=== PATIENT | male | born 1955 | race Caucasian/White ===

== ENCOUNTER 2017-03-28 11:20 | Emergency (ER) | payer OTHER ==
--- NOTE | ~2017-03-28 | CT71 ---
[facility] A Service [facility] RADIOLOGY TEXT RESULTS PATIENT: LIBAN MILLIGAN LOCATION: SED : 59 UNIT #: [id number] AGE: [address]: Otilia Bowen MD SEX: M ORDER DR: [id number] [place] [address] [id number] E MR#: [id number] Acc #: [id number] NAME: LIBAN MILLIGAN : 1955 SEX: M STUDY DATE/TIME: 03/28/2017 12:28 UNIT: SED ROOM: STUDY DESCRIPTION: CT Head Wo Contrast Attending Physician: Otilia Bowen M.D. Ordering Physician: Otilia Bowen M.D. Primary Care Physician: Carlos Enrique Charles M.D. MEDICAL IMAGING REPORT This report is preliminary unless electronic signature is present. EXAM Head CT 03/28 INDICATIONS Dizziness intermittently over the last 10 days, worse in the morning. TECHNIQUE Axial images were obtained from the base to the vertex without contrast. This CT exam was performed with one or more of the following radiation dose reduction techniques: automatic exposure control, adjustment of mA and/or kV according to patient size, and iterative reconstruction. COMPARISON STUDIES No comparison. FINDINGS Ventricular size and configuration are within normal limits. There is no acute infarct or hemorrhage. There are no masses. There is no skull fracture. There are some atherosclerotic calcifications in the carotid siphons. IMPRESSION Negative head CT. Dictated by... Reid Alamo Jr., M.D. THIS IS AN ELECTRONICALLY VERIFIED REPORT Reid Alamo Jr., M.D. at 03/30/2017 7:19 AM [facility] A Service [facility] RADIOLOGY TEXT RESULTS PATIENT: LIBAN MILLIGAN LOCATION: SED : 59 UNIT #: [id number] AGE: [address]: Otilia Bowen MD SEX: M ORDER DR: LARS/britney TD: 03/28/2017 17:44 JOB #: [id number] MEDICAL IMAGING REPORT Page 1 of 1
--- NOTE | ~2017-03-28 | EKG ---
PATIENT: LIBAN MILLIGAN UNIT #: [id number] Ventricular Rate: 86 BPM Atrial Rate: 86 BPM P-R Interval: 144 ms QRS Duration: 96 ms Q-T Interval: 368 ms QTC Calculation(Bezet): 440 ms P [place]: 57 degrees Calculated R [place]: 54 degrees Calculated T [place]: 64 degrees Diagnosis Line: Normal sinus rhythm Diagnosis Line: Possible Left atrial enlargement Diagnosis Line: Incomplete right bundle branch block Diagnosis Line: Borderline ECG Diagnosis Line: No previous ECGs available Diagnosis Line: Confirmed by EMI STILL MD ([id number]) on Diagnosis Line: 03/30/2017 4:49:07 PM INTERPRETING MD: TESSY COOK
--- NOTE | ~2017-03-28 | CR72 ---
[facility]. [facility] A Service of [facility] & [facility] RADIOLOGY TEXT RESULTS PATIENT: LIBAN MILLIGAN LOCATION: SED : 59 UNIT #: [id number] AGE: [address]: Otilia Bowen MD SEX: M ORDER DR: [id number] [place] [id number] E MR#: [id number] Acc #: [id number] NAME: LIBAN MILLIGAN : 1955 SEX: M STUDY DATE/TIME: 03/28/2017 12:35 UNIT: SED ROOM: STUDY DESCRIPTION: CR Chest Single View Portable Attending Physician: Otilia Bowen M.D. Ordering Physician: Otilia Bowen M.D. Primary Care Physician: Carlos Enrique Charles M.D. MEDICAL IMAGING REPORT This report is preliminary unless electronic signature is present. EXAM Portable chest. INDICATION Dizziness off and on for 10 days. COMPARISON No comparisons. FINDINGS There is an opacity in the medial right base which may represent atelectasis versus a small infiltrate. There are no prior studies available for comparison. Heart size is probably normal. IMPRESSION Opacity in the medial right base may be atelectasis versus small infiltrate. Follow up to clearing is recommended. No prior studies available for comparison. Dictated by... Ramez Rodriguez M.D. THIS IS AN ELECTRONICALLY VERIFIED REPORT Ramez Rodriguez M.D. at 03/29/2017 8:15 AM KRISTEL/annelise TD: 03/28/2017 17:57 JOB #: [id number] MEDICAL IMAGING REPORT Page 1 of 1
--- NOTE | ~2017-03-28 | CT16 ---
[facility] A Service of [facility] & [facility] RADIOLOGY TEXT RESULTS PATIENT: LIBAN MILLIGAN LOCATION: SED : 59 UNIT #: [id number] AGE: [address]: Otilia Bowen MD SEX: M ORDER DR: [id number] [address] [address] [id number] E MR#: [id number] Acc #: [id number] NAME: LIBAN MILLIGAN : 1955 SEX: M STUDY DATE/TIME: 03/28/2017 13:45 UNIT: SED ROOM: STUDY DESCRIPTION: CT Angio Chest for PE Attending Physician: Otilia Bowen M.D. Ordering Physician: Otilia Bowen M.D. Primary Care Physician: Carlos Enrique Charles M.D. MEDICAL IMAGING REPORT This report is preliminary unless electronic signature is present. EXAM CT angiogram of the chest INDICATION Abnormal chest radiograph performed today which showed potential opacity at the right lung base. TECHNIQUE Axial CT images were obtained from the thoracic inlet through the dome of the diaphragm following administration of intravenous contrast material. Following this, 3-D reformatted images were obtained. This CT exam was performed with one or more of the following radiation dose reduction techniques: Automatic exposure control, adjustment of mA and/or kV according to patient size, and iterative reconstruction. FINDINGS No acute pulmonary thromboembolus is seen. Thoracic aorta measures within normal size limits. There is no evidence of dissection, although the examination was not optimized for evaluation of the thoracic aorta. There is no pleural or pericardial effusion. The thyroid gland, trachea and esophagus appear unremarkable. Patient has shotty mediastinal lymph nodes, as well as an enlarged right hilar node measuring up to 2.1 x 1.7 cm. Background emphysematous changes are noted. Patient does have a pulmonary nodule within the left lower lobe which measures up to about 8 mm in size. No additional pulmonary nodules or masses are seen. The patient does have some prominent nodes within the upper abdomen. There are some cardiophrenic nodes which measure up to 9 mm to 1 cm. Some additional prominent nodes are seen within the upper abdomen. For example, a node adjacent to the celiac axis measures up to 2.6 x 1.6 cm. Clinical significance is uncertain; short-term followup exam is suggested. Review [facility] A Service of [facility] & [facility] RADIOLOGY TEXT RESULTS PATIENT: LIBAN MILLIGAN LOCATION: SED : 59 UNIT #: [id number] AGE: [address]: Otilia Bowen SEX: M ORDER DR: of bony windows does not demonstrate any aggressive osseous abnormalities. IMPRESSION 1. No acute pulmonary thromboembolus seen. 2. Patient has a noncalcified pulmonary nodule within the left lower lobe measuring up to 8 mm in size. Short-term CT followup in 3 months is recommended. 3. This patient has prominent mediastinal, cardiophrenic and upper abdominal lymph nodes of uncertain clinical significance. Potentially, these could be benign reactive nodes, but attention to them on a short-term CT followup exam is recommended. 4. Thoracic aorta is normal in caliber and without evidence of dissection. Dictated by... Chapis Chinchilla M.D. THIS IS AN ELECTRONICALLY VERIFIED REPORT Chapis Chinchilla M.D. at 03/30/2017 5:15 PM AFF/psc TD: 03/28/2017 21:39 JOB #: [id number] MEDICAL IMAGING REPORT Page 1 of 1
[~2017-03-28 11:20] MED LIST: ALPRAZOLAM PO; LORTAB 7.5-5001 TAB PO
[2017-03-28] MEDS ORDERED: NO MEDICATIONS (11:22)
[2017-03-28 12:05] LABS: BASOPHIL# 0.1 X10e3 (0-0.3); BASOPHIL% 1.1 % (0-2.5); DIFF IND NO; EOSINOPHIL# 0.1 X10e3 (0-0.7); EOSINOPHIL% 1.8 % (0.0-7.0); HEMATOCRIT 38.7 % (38.0-50.0); HEMOGLOBIN 12.9 gm/dL (13.0-16.0); LYMPHOCYTE# 1.4 X10e3 (1.0-3.5); LYMPHOCYTE% 22.6 % (17.0-45.0); MEAN CELL VOLUME 84.9 FL (83-96); MEAN CORPUSCULAR HEMOGLOBIN 28.4 PG (28-34); MEAN CORPUSCULAR HGB CONC 33.4 g/dL (30-36); MEAN PLATELET VOLUME 7.5 FL (6.5-11.5); MONOCYTE# 0.5 X10e3 (0-1.0); MONOCYTE% 7.7 % (3.0-12.0); NEUTROPHIL# 4.1 X10e3 (1.5-7.1); NEUTROPHIL% 66.8 % (40-75); PLATELET COUNT 188 X10e3 (140-420); RED BLOOD COUNT 4.56 X10e (3.90-5.60); RED CELL DISTRIBUTION WIDTH 14.4 % (11.0-15.5); WHITE BLOOD COUNT 6.2 X10e3 (4.0-10.5)
[2017-03-28 12:20] LABS: POC - CKMB 1.4 ng/mL (0.0-7.9); POC - TROPONIN <0.05 ng/mL (<=0.05)
[2017-03-28 12:26] LABS: ALBUMIN SERUM 4.2 g/dL (3.5-5.0); BILIRUBIN, DIRECT 0.1 mg/dL (0.0-0.2); BILIRUBIN,INDIRECT 0.9 mg/dL (0.0-0.9); BUN/CREATININE RATIO 21.11; CALCIUM SERUM 8.4 mg/dL (8.4-10.2); CREATININE SERUM 0.9 mg/dL (0.6-1.4); GLOM FILT RATE Estimated 93.2 mL/min (>60); POTASSIUM 3.2 mmol/L (3.5-5.1); PROTEIN TOTAL SERUM 7.1 g/dL (6.0-8.3)
[2017-03-28 14:24] LABS: POC - CKMB <1.0 ng/mL (0.0-7.9)
[2017-03-28 14:25] LABS: POC - TROPONIN <0.05 ng/mL (<=0.05)
[2017-03-28 14:55] LABS: URINE APPEARANCE CLEAR; URINE BILIRUBIN NEG (NEG); URINE BLOOD NEG (NEG); URINE COLOR YELLOW; URINE GLUCOSE NEG (NORM); URINE KETONE NEG (NEG); URINE LEUKOCYTE ESTERASE NEG (NEG); URINE NITRATE NEG (NEG); URINE PROTEIN NEG (NEG); URINE SOURCE CLEAN CATCH; URINE UROBILINOGEN 0.2 MG/DL (NORM)
[2017-03-28 14:58] LABS: MICRO INDICATED? NO
[2017-03-28 15:06] LABS: AMPHETAMINE POS (NEG); BARBITURATES NEG (NEG); BENZODIAZEPINES POS (NEG); COCAINE NEG (NEG); MARIJUANA NEG (NEG); OPIATES NEG (NEG); TRICYCLIC ANTIDEPRESSANTS NEG (NEG); U METHADONE NEG (NEG)
== END 2017-03-28 16:17 | disposition home or self-care (01) ==
LOC: SED 11:20
PROVIDERS: Student in an Organized Health Care Education/Training Program
DX: R55 Syncope and collapse (principal); R59.0 Localized enlarged lymph nodes; R91.1 Solitary pulmonary nodule; F17.200 Nicotine dependence, unspecified, uncomplicated
CPT/HCPCS: 36415; 70450; 71010; 71275; 80048; 80076; 80307; 81003; 82553; 84484; 85025; 93005; 96360; 99284; Q9967